=== PATIENT | male | born 1940 | race Hispanic/Latino ===

== ENCOUNTER 2017-05-27 06:03 | Observation (INO) | payer OTHER ==
[2017-05-24 08:55] VITALS: BP 128/66
[2017-05-24 09:38] LABS: BASOPHILS % (AUTO) 1.1 % (0.0-5.0); EOSINOPHILS % (AUTO) 8.3 % (0.0-8.0); HEMATOCRIT 44.7 % (42-54); LYMPHOCYTES % (AUTO) 22.2 % (21.0-51.0); MEAN CORPUSCULAR HEMOGLOBIN 30.8 pg (27.0-33.0); MEAN CORPUSCULAR HGB CONC 34.2 g/dL (32.0-36.0); MEAN CORPUSCULAR VOLUME 89.9 fL (79-99); MONOCYTES % (AUTO) 11.3 % (3.0-13.0); NEUTROPHILS % (AUTO) 57.1 % (40.0-77.0); NUCLEATED RED BLOOD CELLS 0.1 % (0.0-0.19); PLATELET COUNT (AUTO) 253 K/uL (130-400); RED BLOOD CELL COUNT(AUTO) 4.97 MIL/uL (4.50-6.20); RED CELL DISTRIBUTION WIDTH 14.3 % (11.0-15.5); WHITE BLOOD COUNT (AUTO) 7.5 K/uL (4.8-10.8)
[2017-05-24 09:45] LABS: POTASSIUM 4.1 mmol/L (3.5-5.1)
[~2017-05-27] VITALS: Ht 168.9 cm; Wt 84.9 kg
[2017-05-27] VITALS (23 sets, daily range): BP systolic 106–145; BP diastolic 54–76
[2017-05-27] MEDS: CEFAZOLIN SODIUM 1 GM VIAL IVP SCH ×3 (06:00→11:45)
[~2017-05-27 06:03] MED LIST: LISI1TAB9 PO; SIMV40TA5 PO
[2017-05-27] MEDS ORDERED: LACTATED RINGERS 1000ML 1,000 ML IV ONE ×2 (06:31→06:33)
[2017-05-27] MEDS ORDERED: DURAMORPH PF1 MG/ML 10ML AMP IV ONE (06:39)
[2017-05-27] MEDS ORDERED: EPINEPHRINE 1 MG/ML AMPULE ONE (06:39)
[2017-05-27] MEDS ORDERED: BUPIVACAINE/PF 0.25% 30ML VIAL IJ ONE (06:39)
[2017-05-27] MEDS ORDERED: BACITRACIN 50,000 UNIT VIAL ONE ×2 (06:40→06:41)
[2017-05-27] MEDS ORDERED: THROMBIN-JMI 20000 UNIT KIT TP ONE (06:40)
[2017-05-27] MEDS ORDERED: ONDANSETRON HCL 4 MG/2 ML VIAL ONE ×2 (07:07→08:20)
[2017-05-27] MEDS ORDERED: LIDOCAINE PF 2% 5ML ABBOJECT ONE (07:07)
[2017-05-27] MEDS ORDERED: DEXAMETHASONE SOD PHOSPHATE 10MG/ML 1ML VIAL ONE ×2 (07:07→08:20)
[2017-05-27] MEDS ORDERED: SUCCINYLCHOLINE 200MG/10ML SYR ONE ×2 (07:08→08:21)
[2017-05-27] MEDS ORDERED: PROPOFOL 10 MG/ML 20ML VIAL IV ONE (07:08)
[2017-05-27] MEDS ORDERED: GLYCOPYRROLATE 0.2 MG/ML 5 ML VIAL ONE (07:08)
[2017-05-27] MEDS ORDERED: MIDAZOLAM HCL 1 MG/ML 2ML VIAL ONE (07:08)
[2017-05-27] MEDS ORDERED: FENTANYL CITRATE PF 50 MCG/1 ML 2ML VIAL ONE ×3 (07:09→11:06)
[2017-05-27] MEDS ORDERED: ARTIFICIAL TEARS 3.5 GM OINTMENT ONE (07:56)
[2017-05-27] MEDS ORDERED: ROCURONIUM BROMIDE 10MG/1ML 5ML VL ONE ×2 (08:20)
[2017-05-27] MEDS ORDERED: METOCLOPRAMIDE 10 MG/2 ML VIAL ONE (08:20)
[2017-05-27] MEDS ORDERED: PHENYLEPHRINE HCL 10 MG/ML 1ML VIAL IV ONE (08:21)
[2017-05-27] MEDS ORDERED: LIDOCAINE HCL 2% JELLY 5 ML ONE (08:21)
[2017-05-27] MEDS ORDERED: LIDOCAINE HCL-MPF 1% 5ML AMP IJ ONE (08:21)
[2017-05-27] MEDS: LACTATED RINGERS 1000ML 1,000 ML IV SCH ×3 (11:28→23:20)
[2017-05-27] MEDS ORDERED: PROMETHAZINE HCL 25 MG/ML 1ML AMPULE IM PRN (11:30)
[2017-05-27] MEDS ORDERED: HYDROCODONE/ACETAMINOPHEN 5/325 MG TAB PO PRN (11:30)
[2017-05-27] MEDS: DEXAMETHASONE SOD PHOSPHATE 4 MG/ML 1ML VIAL IVP SCH ×3 (11:30→23:18)
[2017-05-27] MEDS ORDERED: CEFAZOLIN 2GM / 50 ML 50 ML IV SCH (11:30)
[2017-05-27] MEDS ORDERED: SODIUM CHLORIDE 0.9% 10 ML VIAL IVP PRN (11:30)
[2017-05-27] MEDS ORDERED: MORPHINE SULFATE 2 MG/ML 1ML SYG IVP PRN (11:30)
[2017-05-27] MEDS ORDERED: CEFAZOLIN SODIUM 1 GM VIAL IVP SCH (14:00)
[2017-05-28] VITALS: BP 136/70
[2017-05-28 04:00] VITALS: BP 116/61
[2017-05-28] MEDS: DEXAMETHASONE SOD PHOSPHATE 4 MG/ML 1ML VIAL IVP SCH (05:48)
[2017-05-28 07:30] VITALS: BP 139/65
[2017-05-28] MEDS ORDERED: TRAM50TA4 PO (08:09)
[2017-05-28] MEDS ORDERED: LISINOPRIL 10 MG TABLET PO SCH (09:00)
[2017-05-28] MEDS ORDERED: ATORVASTATIN CALCIUM 40 MG TABLET PO SCH (09:00)
[2017-05-28] MEDS ORDERED: HYDROCHLOROTHIAZIDE 25 MG TABLET PO SCH (09:00)
== END 2017-05-28 10:55 | disposition home or self-care (01) ==
LOC: DAH 06:03 → 4AH 06:04 → INTOOBSV 06:04
PROVIDERS: ADMIT Neurological Surgery; ATTEND Neurological Surgery
DX: M48.061 Spinal stenosis, lumbar region without neurogenic claudication (principal); E78.5 Hyperlipidemia, unspecified
CPT/HCPCS: 36415; 63047; 63048 ×2; 72020; 80048; 85025; 96374; 96376 ×2; A4218; A4344; A5113; A6219; G0378 ×29; J0171; J0330 ×2; J0690 ×2; J1100 ×5; J2001; J2250; J2274; J2370; J2405 ×2; J2704; J2765; J3010 ×3; J3490 ×5; J7120 ×3